=== PATIENT | male | born 1995 | race Native Hawaiian/Other Pacific Islander ===

== ENCOUNTER 2020-07-25 09:35 | Emergency (ER) | payer OTHER ==
[~2020-07-25] VITALS: Ht 167.6 cm; Wt 79.4 kg
[2020-07-25 09:45] VITALS: TEMP 98.9
[2020-07-25 11:48] VITALS: BP 118/52
== END 2020-07-25 11:48 | disposition home or self-care (01) ==
LOC: ED 09:35
PROC: 0HQMXZZ Repair Right Foot Skin, External Approach (ICD-10-PCS; principal; 2020-07-25)
DX: S91.211A Laceration without foreign body of right great toe with damage to nail, initial encounter (principal); S92.424A Nondisplaced fracture of distal phalanx of right great toe, initial encounter for closed fracture; S92.534A Nondisplaced fracture of distal phalanx of right lesser toe(s), initial encounter for closed fracture; W20.8XXA Other cause of strike by thrown, projected or falling object, initial encounter; Y92.89 Other specified places as the place of occurrence of the external cause
CPT/HCPCS: 90715; 96372; 99283; J2001; J2270; J2550

== ENCOUNTER 2021-03-01 10:51 | Emergency (ER) | payer OTHER ==
[~2021-03-01] VITALS: Ht 167.6 cm; Wt 86.2 kg
[2021-03-01 11:00] VITALS: TEMP 98.2
[2021-03-01 12:20] VITALS: BP 140/84
== END 2021-03-01 12:21 | disposition home or self-care (01) ==
LOC: ED 10:51
DX: S62.314A Displaced fracture of base of fourth metacarpal bone, right hand, initial encounter for closed fracture (principal); W22.09XA Striking against other stationary object, initial encounter; Y92.89 Other specified places as the place of occurrence of the external cause
CPT/HCPCS: 99282; 99283